=== PATIENT | female | born 1980 | race Caucasian/White ===

== ENCOUNTER 2018-11-17 18:41 | Emergency (ER) | payer MEDICAID ==
[~2018-11-17] VITALS: Ht 162.6 cm; Wt 113.6 kg
[~2018-11-17 18:41] MED LIST: LITH300C3 PO; RISP4 PO; SERT100T12 PO
[2018-11-17 19:30] LABS: GLUCOSE,POINT OF CARE 125 MG/DL (70-110)
[2018-11-17] MEDS ORDERED: HALOPERIDOL LACTATE 5 MG/ML VIAL IM ONE (22:00)
[2018-11-17] MEDS ORDERED: DiphenhydrAMINE HCL 50 MG/ML VIAL IM ONE (22:00)
[2018-11-17] MEDS ORDERED: LORazepam 2 MG/ML VIAL IM ONE (22:00)
[2018-11-17 22:19] LABS: AMPHET/METH SCREEN,URINE NEGATIVE (NEGATIVE); BARBITURATE SCREEN, URINE NEGATIVE (NEGATIVE); BENZODIAZEPINES SCREEN,URINE NEGATIVE (NEGATIVE); CANNABINOID SCREEN,URINE NEGATIVE (NEGATIVE); COCAINE SCREEN,URINE NEGATIVE (NEGATIVE); METHADONE SCREEN, URINE NEGATIVE (NEGATIVE); OPIATE SCREEN,URINE NEGATIVE (NEGATIVE); PHENCYCLIDINE SCREEN,URINE NEGATIVE (NEGATIVE)
[2018-11-17 22:23] LABS: EOSINOPHILS % (AUTO) 2.7 % (1.0-6.0); HEMATOCRIT 32.1 % (36-46); HEMOGLOBIN 10.6 g/dL (12.0-16.0); LYMPHOCYTES # (AUTO) 1.7 K/uL (1.0-4.8); LYMPHOCYTES % (AUTO) 21.8 % (22.0-44.0); MEAN CORPUSCULAR HEMOGLOBIN 28.3 pg (26.0-34.0); MEAN CORPUSCULAR HGB CONC 32.9 G/dL (31.0-37.0); MEAN CORPUSCULAR VOLUME 86 fL (80-100); MONOCYTES # (AUTO) 0.4 K/uL (0.1-1.0); MONOCYTES % (AUTO) 5.2 % (2.0-9.0); NEUTROPHILS # (AUTO) 5.5 K/uL (1.8-7.7); NEUTROPHILS % (AUTO) 69.3 % (40.0-70.0); PLATELET COUNT (AUTO) 297 K/uL (150-450); RED BLOOD CELL COUNT(AUTO) 3.74 MIL/uL (4.00-5.20); RED CELL DISTRIBUTION WIDTH 14.5 % (11.5-14.5)
[2018-11-17 22:31] LABS: ANION GAP 9 mmol/L (8-16); CALCIUM, TOTAL 9.2 mg/dL (8.8-10.5); CARBON DIOXIDE 27 mmol/L (22-29); CHLORIDE 105 mmol/L (98-107); CREATININE 0.84 mg/dL (0.60-1.30); GLOMERULAR FILTR. RATE CALC > 60 mL/min (>60); GLUCOSE,RANDOM 118 mg/dL (70-110); POTASSIUM 3.4 mmol/L (3.5-5.1); SODIUM SERUM 141 mmol/L (136-145); UREA NITROGEN, BLOOD 6 mg/dL (7-18)
[2018-11-17 22:37] LABS: ALANINE AMINOTRANSFERASE 52 U/L (12-78); ALBUMIN 3.5 g/dL (3.4-5.0); ALKALINE PHOSPHATASE 77 U/L (46-116); ASPARTATE AMINOTRANSFERASE 60 U/L (15-37); BILIRUBIN,TOTAL 0.3 mg/dL (0.1-1.0); TOTAL PROTEIN, SERUM 7.2 g/dL (6.4-8.2)
[2018-11-18 04:33] VITALS: BP 138/72
== END 2018-11-18 06:17 | disposition home or self-care (01) ==
LOC: EMS 18:45
DX: S93.401A Sprain of unspecified ligament of right ankle, initial encounter (principal); X50.1XXA Overexertion from prolonged static or awkward postures, initial encounter; Y93.89 Activity, other specified; Y92.89 Other specified places as the place of occurrence of the external cause; Y99.8 Other external cause status
CPT/HCPCS: 36415; 73610; 80053; 80307; 82962; 84703; 85025; 96372; 99284; G0480; J1200; J1630; J2060

== ENCOUNTER 2021-01-13 11:49 | Emergency (ER) | payer MEDICAID, SELFPAY ==
[~2021-01-13] VITALS: Ht 157.5 cm; Wt 100.0 kg
[~2021-01-13 11:49] MED LIST changes: -RISP4 PO; +RISP4TAB73 PO; +SERT-162 PO; -SERT100T12 PO
[2021-01-13] MEDS ORDERED: LURA60TA PO (12:26)
[2021-01-13] MEDS ORDERED: DIPH25TA51 PO (12:26)
[2021-01-13] MEDS ORDERED: PALI234D IM (12:26)
[2021-01-13 17:09] VITALS: BP 137/69
== END 2021-01-13 19:30 | disposition home or self-care (01) ==
LOC: EMS 11:49
DX: G47.00 Insomnia, unspecified (principal); F32.9 Major depressive disorder, single episode, unspecified
CPT/HCPCS: 99281; 99282; Z7502

== ENCOUNTER 2021-01-30 16:55 | Emergency (ER) | payer MEDICAID ==
[~2021-01-30] VITALS: Ht 167.6 cm; Wt 100.0 kg
[~2021-01-30 16:55] MED LIST changes: +DIPH25TA51 PO; -LITH300C3 PO; +LURA60TA PO; +PALI234D IM; -RISP4TAB73 PO; -SERT-162 PO
[2021-01-30 17:46] LABS: BASOPHILS % (AUTO) 0.7 % (0.0-2.0); EOSINOPHILS % (AUTO) 1.4 % (1.0-6.0); HEMATOCRIT 36.6 % (36-46); LYMPHOCYTES # (AUTO) 1.8 K/uL (1.0-4.8); LYMPHOCYTES % (AUTO) 19.5 % (22.0-44.0); MEAN CORPUSCULAR HEMOGLOBIN 28.9 pg (26.0-34.0); MEAN CORPUSCULAR HGB CONC 32.7 G/dL (31.0-37.0); MEAN CORPUSCULAR VOLUME 88 fL (80-100); MONOCYTES # (AUTO) 0.5 K/uL (0.1-1.0); MONOCYTES % (AUTO) 5.3 % (2.0-9.0); NEUTROPHILS # (AUTO) 6.6 K/uL (1.8-7.7); NEUTROPHILS % (AUTO) 73.1 % (40.0-70.0); PLATELET COUNT (AUTO) 234 K/uL (150-450); RED BLOOD CELL COUNT(AUTO) 4.14 MIL/uL (4.00-5.20); RED CELL DISTRIBUTION WIDTH 14.7 % (11.5-14.5)
[2021-01-30 18:00] LABS: CARBON DIOXIDE 28 mmol/L (22-29); CHLORIDE 102 mmol/L (98-107); SODIUM SERUM 138 mmol/L (136-145)
[2021-01-30 18:01] LABS: ANION GAP 8 mmol/L (8-16); GLOMERULAR FILTR. RATE CALC > 60 mL/min (>60); GLUCOSE,RANDOM 99 mg/dL (70-110); UREA NITROGEN, BLOOD 12 mg/dL (7-18)
[2021-01-30 18:07] LABS: ALANINE AMINOTRANSFERASE 40 U/L (12-78); ALBUMIN 3.5 g/dL (3.4-5.0); ALKALINE PHOSPHATASE 75 U/L (46-116); ASPARTATE AMINOTRANSFERASE 20 U/L (15-37); BILIRUBIN,TOTAL 0.2 mg/dL (0.1-1.0); HCG,QUANTITATIVE < 1 mIU/mL (0-6); TOTAL PROTEIN, SERUM 7.8 g/dL (6.4-8.2)
[2021-01-30] MEDS ORDERED: BUPR-121 PO (18:37)
[2021-01-30 19:07] LABS: COVID AG,FIA SOURCE NASOPHARYNGEAL
[2021-01-30 20:30] VITALS: BP 111/74
== END 2021-01-30 20:32 | disposition home or self-care (01) ==
LOC: EMS 16:55
DX: R07.89 Other chest pain (principal); R05 Cough; F20.9 Schizophrenia, unspecified; Z20.822 Contact with and (suspected) exposure to COVID-19
CPT/HCPCS: 36415; 71045; 80053; 84484; 84702; 85025; 87426; 93005; 99285; U0003

== ENCOUNTER 2024-10-20 15:21 | Emergency (ER) | payer MEDICAID ==
[~2024-10-20] VITALS: Ht 160 cm; Wt 86.4 kg
[~2024-10-20 15:21] MED LIST changes: +BUPR-345 PO
[2024-10-20 15:25] VITALS: BP 145/89; PULSE 122; RESP 20; TEMP 98.8; O2SAT 96
[2024-10-20] MEDS ORDERED: ATOR20TA65 PO (15:29)
[2024-10-20] MEDS ORDERED: METF-81 PO (15:29)
[2024-10-20] MEDS ORDERED: LITH150C PO (15:29)
[2024-10-20] MEDS ORDERED: AMAN100C15 PO (15:29)
[2024-10-20] MEDS ORDERED: LUMA42CA PO (15:29)
[2024-10-20] MEDS ORDERED: GABA-1181 PO (15:29)
[2024-10-20] MEDS ORDERED: DIPH50CA35 PO (15:29)
[2024-10-20] MEDS ORDERED: LITH300C3 PO (15:29)
[2024-10-20] MEDS ORDERED: PALI156D IM (15:29)
== END 2024-10-20 15:57 | disposition left against medical advice (07) ==
LOC: EMS 15:21
DX: F22 Delusional disorders (principal); Z53.21 Procedure and treatment not carried out due to patient leaving prior to being seen by health care provider

== ENCOUNTER 2024-10-20 17:04 | Inpatient (IN) | payer MEDICAID ==
[~2024-10-20] VITALS: Ht 170.2 cm; Wt 90.9 kg
[~2024-10-20 17:04] MED LIST changes: +AMAN100C15 PO; +ATOR20TA65 PO; +DIPH50CA35 PO; +GABA-1181 PO; +LITH150C PO; +LITH300C3 PO; +LUMA42CA PO; +METF-81 PO; +PALI156D IM
[2024-10-20 21:07] LABS: BASOPHILS % (AUTO) 0.4 % (0.0-2.0); EOSINOPHILS % (AUTO) 0.1 % (1.0-6.0); HEMATOCRIT 40.2 % (36-46); LYMPHOCYTES % (AUTO) 13.9 % (22.0-44.0); MEAN CORPUSCULAR HEMOGLOBIN 28.8 pg (26.0-34.0); MEAN CORPUSCULAR HGB CONC 32.3 G/dL (31.0-37.0); MEAN CORPUSCULAR VOLUME 89 fL (80-100); MONOCYTES # (AUTO) 0.7 K/uL (0.1-1.0); MONOCYTES % (AUTO) 4.7 % (2.0-9.0); NEUTROPHILS # (AUTO) 11.4 K/uL (1.8-7.7); NEUTROPHILS % (AUTO) 80.9 % (40.0-70.0); PLATELET COUNT (AUTO) 301 K/uL (150-450); WHITE BLOOD COUNT (AUTO) 14.1 K/uL (4.5-11.0)
[2024-10-20 21:29] LABS: COVID AG,FIA SOURCE NASAL SWAB
[2024-10-20 21:29] LABS: ANION GAP 11 mmol/L (8-16); CALCIUM, TOTAL 9.7 mg/dL (8.8-10.5); CARBON DIOXIDE 29 mmol/L (22-29); CHLORIDE 104 mmol/L (98-107); CREATININE 0.92 mg/dL (0.60-1.30); GLOMERULAR FILTR. RATE CALC > 60 mL/min (>60); GLUCOSE,RANDOM 107 mg/dL (70-110); POTASSIUM 3.5 mmol/L (3.5-5.1); SODIUM SERUM 143 mmol/L (136-145); UREA NITROGEN, BLOOD 8 mg/dL (7-18)
[2024-10-20 21:39] LABS: ALCOHOL, BLOOD (SERUM) < 3 mg/dL (0-10)
[2024-10-20 21:51] LABS: SARS-COV2 (COVID) ANTIGEN,FIA Negative (Negative)
[2024-10-21 00:30] VITALS: O2SAT 96
[2024-10-21] MEDS ORDERED: TraMADol HCL 50 MG TABLET PO ONE (01:15)
[2024-10-21 04:59] VITALS: BP 126/86; PULSE 98; RESP 18; TEMP 98
[2024-10-21 06:36] LABS: GLUCOMETER DEV NAME(LOC) BV3S.; GLUCOSE,POINT OF CARE 112 MG/DL (70-110)
[2024-10-21] MEDS ORDERED: MAGNESIUM HYDROXIDE SUSPENSION 30 ML UDCUP PO PRN (06:45)
[2024-10-21] MEDS ORDERED: DOCUSATE SODIUM 100 MG CAPSULE PO PRN (06:45)
[2024-10-21] MEDS ORDERED: MAG HYDROX/ALUMINUM HYD/SIMETH ES 30 ML SUSPENSION UDCUP PO PRN (06:45)
[2024-10-21] MEDS ORDERED: BACITRACIN 28 GM OINTMENT TP PRN (06:45)
[2024-10-21] MEDS ORDERED: ACETAMINOPHEN 325 MG TABLET PO PRN (06:45)
[2024-10-21] MEDS ORDERED: CloNIDine HCL 0.1 MG TABLET PO PRN (06:45)
[2024-10-21] MEDS ORDERED: OMEPRAZOLE 20 MG CAPSULE PO PRN (06:45)
[2024-10-21] MEDS ORDERED: ONDANSETRON 4 MG TABLET PO PRN (06:45)
[2024-10-21] MEDS ORDERED: IBUPROFEN 600 MG TABLET PO PRN (06:45)
[2024-10-21] MEDS ORDERED: BENZOCAINE/MENTHOL [CEPACOL] LOZENGE PO PRN (06:45)
[2024-10-21] MEDS ORDERED: LOPERAMIDE HCL 2 MG CAPSULE PO PRN (06:45)
[2024-10-21 08:23] VITALS: BP 118/76; PULSE 85; RESP 16; TEMP 97.6; O2SAT 98
[2024-10-21] MEDS ORDERED: PNEUMOCOCCAL VACCINE POLYVALENT 0.5 ML SYRINGE [PPSV23] IM. ONE (11:45)
[2024-10-21] MEDS: LITHIUM CARBONATE 300 MG CAPSULE PO SCH (16:15)
[2024-10-22] MEDS: ATORVASTATIN CALCIUM 20 MG TABLET PO SCH (08:05)
[2024-10-22] MEDS: MetFORMIN HCL 500 MG ER TABLET PO SCH (08:05)
[2024-10-22 08:20] VITALS: BP 118/76; PULSE 79; RESP 16; TEMP 98; O2SAT 96
[2024-10-22 08:46] LABS: CHOL/HDL RATIO 3.1 (3.9-5.7); FREE T4 (FREE THYROXINE) 1.38 ng/dL (0.76-1.46); THYROID STIMULATING HORMONE 1.58 uIU/mL (0.36-3.74)
[2024-10-22 20:27] VITALS: BP 114/85; PULSE 94; RESP 16; TEMP 98.3; O2SAT 97
[2024-10-23 08:16] VITALS: BP 126/80; PULSE 106; RESP 17; TEMP 97.8; O2SAT 95
[2024-10-23 20:00] VITALS: BP 123/91; PULSE 89; RESP 18; TEMP 97.3; O2SAT 96
[2024-10-24 08:56] VITALS: BP 120/86; PULSE 91; RESP 17; TEMP 97.2; O2SAT 97
[2024-10-24] MEDS: PETROLATUM,WHITE 28 GM JELLY TP PRN (17:03)
[2024-10-24 20:00] VITALS: BP 112/69; PULSE 80; RESP 16; TEMP 97.7; O2SAT 99
[2024-10-25 08:11] VITALS: BP 125/78; PULSE 87; RESP 16; TEMP 99; O2SAT 97
[2024-10-25] MEDS: LORazepam 2 MG TABLET PO PRN (16:21)
[2024-10-25 20:02] VITALS: BP 115/79; PULSE 70; RESP 16; TEMP 97; O2SAT 97
[2024-10-25] MEDS: ZOLPIDEM TARTRATE 10 MG TABLET PO PRN (20:30)
[2024-10-26 08:23] VITALS: BP 126/74; PULSE 79; RESP 16; TEMP 97.6; O2SAT 98
[2024-10-26 20:55] VITALS: BP 118/79; PULSE 92; RESP 16; TEMP 97.6; O2SAT 99
[2024-10-27] MEDS: CloZAPine 25 MG TABLET PO SCH (08:01)
[2024-10-27 08:05] VITALS: BP 116/76; PULSE 84; RESP 18; TEMP 97.8; O2SAT 96
[2024-10-27 08:32] LABS: BASOPHILS % (AUTO) 0.5 % (0.0-2.0); EOSINOPHILS % (AUTO) 2.7 % (1.0-6.0); HEMATOCRIT 38.4 % (36-46); HEMOGLOBIN 12.5 g/dL (12.0-16.0); LYMPHOCYTES # (AUTO) 1.7 K/uL (1.0-4.8); LYMPHOCYTES % (AUTO) 19.8 % (22.0-44.0); MEAN CORPUSCULAR HEMOGLOBIN 29.3 pg (26.0-34.0); MEAN CORPUSCULAR HGB CONC 32.7 G/dL (31.0-37.0); MEAN CORPUSCULAR VOLUME 90 fL (80-100); MONOCYTES # (AUTO) 0.3 K/uL (0.1-1.0); MONOCYTES % (AUTO) 3.9 % (2.0-9.0); NEUTROPHILS # (AUTO) 6.4 K/uL (1.8-7.7); NEUTROPHILS % (AUTO) 73.1 % (40.0-70.0); PLATELET COUNT (AUTO) 264 K/uL (150-450); RED BLOOD CELL COUNT(AUTO) 4.27 MIL/uL (4.00-5.20); RED CELL DISTRIBUTION WIDTH 14.1 % (11.5-14.5); WHITE BLOOD COUNT (AUTO) 8.8 K/uL (4.5-11.0)
[2024-10-27 20:02] VITALS: BP 119/74; PULSE 94; RESP 17; TEMP 97.8; O2SAT 96
[2024-10-28 08:11] VITALS: BP 118/77; PULSE 100; RESP 18; TEMP 97.5; O2SAT 97
[2024-10-28] MEDS: CloZAPine 25 MG TABLET PO SCH ×2 (08:42→21:39)
[2024-10-28 20:17] VITALS: BP 122/85; PULSE 100; RESP 16; TEMP 98.1; O2SAT 96
[2024-10-29] MEDS: CloZAPine 25 MG TABLET PO SCH ×2 (08:10→20:38)
[2024-10-29 08:51] VITALS: BP 120/84; PULSE 88; RESP 18; TEMP 98; O2SAT 98
[2024-10-30] MEDS: haloperidoL 5 MG TABLET PO PRN (05:15)
[2024-10-30 08:17] VITALS: BP 119/72; PULSE 82; RESP 16; TEMP 97.9; O2SAT 97
[2024-10-30] MEDS: CloZAPine 25 MG TABLET PO SCH (08:57)
[2024-10-30 20:10] VITALS: BP 113/66; PULSE 100; RESP 16; TEMP 97.4; O2SAT 95
[2024-10-31 08:23] VITALS: BP 117/74; PULSE 78; RESP 16; TEMP 97.9; O2SAT 96
[2024-10-31] MEDS: ALBUTEROL SULFATE HFA 90 MCG/PUFF 8 GM INHALER IH PRN (09:17)
[2024-10-31 20:58] VITALS: BP 118/86; PULSE 84; RESP 16; TEMP 98; O2SAT 97
[2024-11-01 08:12] VITALS: BP 103/60; PULSE 96; RESP 16; TEMP 97.8; O2SAT 97
[2024-11-01] MEDS: CloZAPine 25 MG TABLET PO SCH (08:15)
[2024-11-01] MEDS: CloZAPine 100 MG TABLET PO SCH (20:07)
[2024-11-01 21:16] VITALS: BP 120/68; PULSE 100; RESP 17; TEMP 97.2; O2SAT 96
[2024-11-02 08:09] VITALS: BP 114/51; PULSE 114; RESP 18; TEMP 97.2; O2SAT 97
[2024-11-02] MEDS: CloZAPine 25 MG TABLET PO SCH (08:30)
[2024-11-02 09:35] VITALS: BP 114/51; PULSE 97; RESP 18; TEMP 96.8; O2SAT 97
[2024-11-02 20:50] VITALS: BP 143/77; PULSE 112; RESP 19; TEMP 97; O2SAT 97
[2024-11-02] MEDS: CloZAPine 100 MG TABLET PO SCH (20:56)
[2024-11-03] MEDS: TUBERCULIN, PURIFIED PROTEIN DERIVATIVE 5 TU/0.1 ML SYRINGE ID ONE (06:53)
[2024-11-03 08:05] VITALS: BP 111/77; PULSE 100; RESP 16; TEMP 96.9; O2SAT 97
[2024-11-03 08:13] LABS: BASOPHILS % (AUTO) 0.5 % (0.0-2.0); EOSINOPHILS % (AUTO) 2.3 % (1.0-6.0); HEMATOCRIT 41.1 % (36-46); HEMOGLOBIN 13.2 g/dL (12.0-16.0); LYMPHOCYTES # (AUTO) 2.2 K/uL (1.0-4.8); LYMPHOCYTES % (AUTO) 22.4 % (22.0-44.0); MEAN CORPUSCULAR HEMOGLOBIN 29.1 pg (26.0-34.0); MEAN CORPUSCULAR HGB CONC 32.1 G/dL (31.0-37.0); MEAN CORPUSCULAR VOLUME 91 fL (80-100); MONOCYTES # (AUTO) 0.4 K/uL (0.1-1.0); NEUTROPHILS % (AUTO) 70.8 % (40.0-70.0); PLATELET COUNT (AUTO) 263 K/uL (150-450); RED BLOOD CELL COUNT(AUTO) 4.54 MIL/uL (4.00-5.20); RED CELL DISTRIBUTION WIDTH 14.1 % (11.5-14.5); WHITE BLOOD COUNT (AUTO) 9.9 K/uL (4.5-11.0)
[2024-11-03] MEDS: CloZAPine 25 MG TABLET PO SCH (09:53)
[2024-11-03 20:14] VITALS: BP 109/69; PULSE 82; RESP 17; TEMP 98.5; O2SAT 97
[2024-11-03] MEDS: CloZAPine 100 MG TABLET PO SCH (20:31)
[2024-11-04] MEDS: CloZAPine 100 MG TABLET PO SCH (08:04)
[2024-11-04 08:20] VITALS: BP 114/68; PULSE 79; RESP 16; TEMP 97.8; O2SAT 99
[2024-11-04 20:06] VITALS: BP 133/76; PULSE 86; RESP 17; TEMP 97.4; O2SAT 97
[2024-11-05 08:03] VITALS: BP 106/62; PULSE 96; RESP 16; TEMP 97.1; O2SAT 96
[2024-11-05 09:38] LABS: APPEARANCE,URINE CLEAR (CLEAR); BILIRUBIN,URINE NEGATIVE (NEGATIVE); COLOR,URINE LIGHT YELLOW (YELLOW); GLUCOSE, URINE (UA) NEGATIVE (NEGATIVE); KETONES,URINE NEGATIVE (NEGATIVE); LEUKOCYTE ESTERASE ,URINE NEGATIVE (NEGATIVE); NITRATE,URINE NEGATIVE (NEGATIVE); OCCULT BLOOD,URINE NEGATIVE (NEGATIVE); PH,URINE 6.5 (5.0-8.0); PH,URINE DRUG SCREEN 6.5 (5.0-8.0); PROTEIN,URINE TRACE mg/dL (NEGATIVE); SPECIFIC GRAVITIY, URINE 1.011 (1.003-1.030); UROBILINOGEN,URINE <=1.0 mg/dL (<=1.0)
[2024-11-05 09:52] LABS: ALCOHOL, URINE DRUG SCREEN NEGATIVE (NEGATIVE); AMPHET/METH SCREEN,URINE NEGATIVE (NEGATIVE); BARBITURATE SCREEN, URINE NEGATIVE (NEGATIVE); BENZODIAZEPINES SCREEN,URINE NEGATIVE (NEGATIVE); CANNABINOID SCREEN,URINE NEGATIVE (NEGATIVE); COCAINE SCREEN,URINE NEGATIVE (NEGATIVE); METHADONE SCREEN, URINE NEGATIVE (NEGATIVE); OPIATE SCREEN,URINE NEGATIVE (NEGATIVE); PHENCYCLIDINE SCREEN,URINE NEGATIVE (NEGATIVE)
[2024-11-05 20:36] VITALS: BP 122/84; PULSE 100; RESP 16; TEMP 97.4; O2SAT 98
[2024-11-06 08:00] VITALS: BP 127/72; PULSE 95; RESP 17; TEMP 97.6; O2SAT 97
[2024-11-06] MEDS: CloZAPine 25 MG TABLET PO SCH (08:18)
[2024-11-06] MEDS: CloZAPine 100 MG TABLET PO SCH (20:43)
[2024-11-06 21:05] VITALS: BP 133/73; PULSE 90; RESP 17; O2SAT 96
[2024-11-07 08:14] VITALS: BP 121/68; PULSE 100; RESP 17; TEMP 97; O2SAT 96
[2024-11-07] MEDS: CloZAPine 25 MG TABLET PO SCH (08:23)
[2024-11-07 20:00] VITALS: BP 137/79; PULSE 101; RESP 17; TEMP 98.3; O2SAT 96
[2024-11-07] MEDS: CloZAPine 100 MG TABLET PO SCH (21:18)
[2024-11-08 08:05] VITALS: BP 116/76; PULSE 100; RESP 16; TEMP 97.8; O2SAT 97
[2024-11-08] MEDS: CloZAPine 100 MG TABLET PO SCH ×2 (08:47→20:05)
[2024-11-08 20:05] VITALS: BP 115/72; PULSE 100; RESP 17; TEMP 97.6; O2SAT 94
[2024-11-08 20:09] VITALS: BP 119/69; PULSE 100; RESP 16; TEMP 97.5; O2SAT 96
[2024-11-09 08:14] VITALS: BP 125/78; PULSE 100; RESP 16; TEMP 97.7; O2SAT 97
[2024-11-09 20:18] VITALS: BP 113/65; PULSE 68; RESP 16; TEMP 97.7; O2SAT 98
[2024-11-10 08:34] VITALS: BP 122/77; PULSE 100; RESP 18; TEMP 97.3; O2SAT 97
[2024-11-10] MEDS ORDERED: DiphenhydrAMINE HCL 50 MG/ML VIAL ONE ×2 (19:26→19:28)
[2024-11-10] MEDS ORDERED: LORazepam 2 MG/ML VIAL ONE (19:26)
[2024-11-10] MEDS ORDERED: HALOPERIDOL LACTATE 5 MG/ML VIAL ONE (19:26)
[2024-11-10 20:01] VITALS: BP 121/77; PULSE 109; RESP 16; TEMP 97.4; O2SAT 98
[2024-11-11 09:23] VITALS: BP 107/71; PULSE 118; RESP 18; TEMP 97.8; O2SAT 96
[2024-11-11 12:45] VITALS: PULSE 100
[2024-11-11 20:08] VITALS: BP 130/79; PULSE 81; RESP 18; TEMP 97.7; O2SAT 95
[2024-11-12 08:28] VITALS: BP 94/69; PULSE 110; RESP 17; TEMP 97.4; O2SAT 95
[2024-11-12 09:34] LABS: BASOPHILS % (AUTO) 0.3 % (0.0-2.0); EOSINOPHILS % (AUTO) 2.7 % (1.0-6.0); HEMATOCRIT 35.7 % (36-46); HEMOGLOBIN 11.8 g/dL (12.0-16.0); LYMPHOCYTES # (AUTO) 1.9 K/uL (1.0-4.8); LYMPHOCYTES % (AUTO) 18.3 % (22.0-44.0); MEAN CORPUSCULAR HEMOGLOBIN 29.2 pg (26.0-34.0); MEAN CORPUSCULAR HGB CONC 33.1 G/dL (31.0-37.0); MEAN CORPUSCULAR VOLUME 88 fL (80-100); MONOCYTES # (AUTO) 0.5 K/uL (0.1-1.0); MONOCYTES % (AUTO) 4.6 % (2.0-9.0); NEUTROPHILS # (AUTO) 7.9 K/uL (1.8-7.7); NEUTROPHILS % (AUTO) 74.1 % (40.0-70.0); PLATELET COUNT (AUTO) 258 K/uL (150-450); RED BLOOD CELL COUNT(AUTO) 4.06 MIL/uL (4.00-5.20); WHITE BLOOD COUNT (AUTO) 10.6 K/uL (4.5-11.0)
[2024-11-12 11:40] VITALS: PULSE 94
[2024-11-12 20:15] VITALS: BP 119/83; PULSE 115; RESP 19; TEMP 97.8; O2SAT 97
[2024-11-13 08:11] VITALS: BP 111/76; PULSE 99; RESP 18; TEMP 97.4; O2SAT 95
[2024-11-13 20:42] VITALS: BP 113/69; PULSE 108; RESP 16; TEMP 97.5; O2SAT 97
[2024-11-14 08:43] VITALS: RESP 17
[2024-11-14 20:38] VITALS: BP 132/74; PULSE 110; RESP 17; TEMP 98.7; O2SAT 97
[2024-11-15 08:18] VITALS: BP 136/68; PULSE 99; RESP 18; TEMP 97.2; O2SAT 96
[2024-11-15] MEDS ORDERED: CLOZ200T24 PO (10:55)
[2024-11-15] MEDS ORDERED: CLOZ100T61 PO (10:59)
[2024-11-15] MEDS ORDERED: PALI234D IM (11:04)
[2024-11-23] MEDS ORDERED: PALIPERIDONE PALMITATE 234 MG/1.5 ML SYRINGE IM SCH (09:00)
== END 2024-11-15 16:27 | disposition home or self-care (01) | DRG 750 ==
LOC: EMS 17:04 → B3A 10-21 04:12
PROVIDERS: ADMIT Psychiatry & Neurology Psychiatry; ATTEND Psychiatry & Neurology Psychiatry
DX: F20.9 Schizophrenia, unspecified (principal); E11.9 Type 2 diabetes mellitus without complications; D64.9 Anemia, unspecified; E66.9 Obesity, unspecified; E78.5 Hyperlipidemia, unspecified; F32.A Depression, unspecified; Z20.822 Contact with and (suspected) exposure to COVID-19; G47.00 Insomnia, unspecified; K21.9 Gastro-esophageal reflux disease without esophagitis; I10 Essential (primary) hypertension; Z68.31 Body mass index [BMI] 31.0-31.9, adult
CPT/HCPCS: 80048; 80061; 80307; 81003; 82962; 84439; 84443; 84703; 85025; 99285; G0480; J1200; J1630; J2060; J3535